=== PATIENT | female | born 1980 | race Caucasian/White ===

== ENCOUNTER 2020-12-21 10:51 | Outpatient (REF) | payer BC, SELFPAY ==
--- NOTE | ~2020-12-21 | XR_ITS ---
EXAMINATION: XR BILATERAL KNEE CLINICAL INFORMATION: Pain in bilateral knee. COMPARISON: None. TECHNIQUE: 4 views each knee. FINDINGS: Left Knee: There is mild loss of medial and patellofemoral compartment joint space with mild spurring along the medial and moderate spurring along the anterior superior patella. No abnormal joint effusion or loose bodies seen. No visible acute fracture. Left Knee: There is no visible acute fracture or dislocation. There is mild loss of medial and patellofemoral compartment joint space with moderate superior patellar spurring. No abnormal joint effusion seen. There are no loose bodies. XR/XR knee RT 4V IMPRESSION: Degenerative arthritic changes medial and patello- femoral compartments both knees with periarticular spurring. No loose body seen. No abnormal joint effusion seen.
--- NOTE | ~2020-12-21 | XR_ITS ---
EXAMINATION: XR BILATERAL KNEE CLINICAL INFORMATION: Pain in bilateral knee. COMPARISON: None. TECHNIQUE: 4 views each knee. FINDINGS: Left Knee: There is mild loss of medial and patellofemoral compartment joint space with mild spurring along the medial and moderate spurring along the anterior superior patella. No abnormal joint effusion or loose bodies seen. No visible acute fracture. Left Knee: There is no visible acute fracture or dislocation. There is mild loss of medial and patellofemoral compartment joint space with moderate superior patellar spurring. No abnormal joint effusion seen. There are no loose bodies. XR/XR knee LT 4V IMPRESSION: Degenerative arthritic changes medial and patello- femoral compartments both knees with periarticular spurring. No loose body seen. No abnormal joint effusion seen.
[2020-12-21 12:52] LABS: MANUAL DIFF FLAG NO
[2020-12-21 12:58] LABS: Basophils Percent Auto 0.4 % (0-2); Eosinophils Absolute Auto 0.2 X10*3/uL (0.0-0.4); Hematocrit 38.1 % (37-47); Hemoglobin 12.8 g/dl (12.0-16.0); Imm Gran Abs Auto 0.02 X10*3/uL (0.00-0.03); Imm Gran Pct Auto 0.2 % (0.0-0.4); Lymphocytes Absolute Auto 2.2 X10*3/uL (1.2-4.9); Lymphocytes Percent Auto 25.7 % (20-40); Mean Corpuscular HGB Conc 33.6 g/dl (31.0-35.0); Mean Corpuscular Volume 86.4 fL (80-98); Mean Platelet Volume 10.1 fL (9.4-12.3); Monocytes Absolute Auto 0.5 X10*3/uL (0.1-1.2); Monocytes Percent Auto 5.3 % (2-11); Neutrophils Absolute Auto 5.7 X10*3/uL (2.0-8.3); Neutrophils Percent Auto 66.4 % (45-73); Platelet Count 381 X10*3/uL (160-400); Red Blood Count 4.41 X10*6/uL (4.20-5.50); Red Cell Distribution Width 12.4 % (11.0-16.0); White Blood Count 8.6 X10*3/uL (4.8-10.8)
[2020-12-21 13:26] LABS: Alanine Aminotransferase 18 U/L (0-31); Albumin Level 4.3 g/dL (3.5-5.0); Alkaline Phosphatase 58 U/L (39-117); Anion Gap 15 (12-20); Aspartate Amino Transferase 14 U/L (5-31); Bilirubin Total 0.9 mg/dL (0.0-1.0); Blood Urea Nitrogen 13 mg/dL (9-16); C Reactive Protein 1.23 mg/dL (< or = 0.50); Calcium 9.5 mg/dL (8.4-10.2); Carbon Dioxide 24 mmol/L (22-29); Chloride 104 mmol/L (96-108); Estimated Glomerular Filt Rate > 60; Glucose Random 89 mg/dL (60-115); Potassium 3.8 mmol/L (3.3-5.1); Rheumatoid Factor < 15.0 IU/mL (<15.0); Sodium 139 mmol/L (135-145); Total Protein 7.2 g/dL (6.5-8.0)
[2020-12-21 14:04] LABS: Erythrocyte Sedimentation Rate 14 MM/HR (0-20)
[2020-12-22 14:42] LABS: Anti-Centromere B Antibodies <1.0 NEG AI (<1.0 NEG); Antibody to SS-A Antigen <1.0 NEG AI (<1.0 NEG); Antibody to SS-B Antigen <1.0 NEG AI (<1.0 NEG)
[2020-12-24 13:12] LABS: PTT (LAC) Screen 30 sec (< OR = 40)
[2020-12-24 14:51] LABS: Anti Nuclear Antibody Screen NEGATIVE (NEGATIVE)
[2020-12-26 13:51] LABS: Beta-2 Microglobulin, Serum 2.36 mg/L (< OR = 2.51)
[2020-12-26 14:11] LABS: Cyclic Citrullinated Peptide <16 UNITS
== END 2020-12-21 10:52 | disposition home or self-care (01) ==
LOC: HO.LAB 10:51
PROVIDERS: PCP Nurse Practitioner Family; Visit Provider Student in an Organized Health Care Education/Training Program
DX: M25.561 Pain in right knee (principal); M25.562 Pain in left knee; G89.29 Other chronic pain; M79.641 Pain in right hand; M79.642 Pain in left hand; B37.0 Candidal stomatitis; Z90.49 Acquired absence of other specified parts of digestive tract; Z98.51 Tubal ligation status; Z79.899 Other long term (current) drug therapy
CPT/HCPCS: 36415; 73564; 80053; 82232; 85025; 85597; 85613; 85652; 85730; 86038; 86039; 86140; 86200; 86235; 86431

== ENCOUNTER → 2021-01-04 15:36 | Outpatient (BNVA) | payer BC, SELFPAY | PROVIDERS: PCP Nurse Practitioner Family; Visit Provider Student in an Organized Health Care Education/Training Program ==

== ENCOUNTER 2023-08-12 12:49 | Outpatient (REF) | payer BC, SELFPAY ==
--- NOTE | ~2023-08-12 | IR_ITS ---
VenaSeal ablation left greater saphenous vein (GSV.) Ultrasound-guided foam sclerotherapy left lower extremity varicose veins HISTORY: Varicose veins bilaterally lower extremities INDICATION: Symptomatic varicose veins left lower extremity. Symptoms include pain, swelling, itching and burning ANESTHESIA: Local sedation with 1% lidocaine only PROCEDURE: Informed consent was obtained following a discussion of the risks and benefits of the procedure with the patient. The patient was placed supine on the procedure table. A preliminary ultrasound was performed which demonstrated dilated greater saphenous vein (GSV) as well as numerous branch varicosities in the calf. A site was marked on the left medial leg below the knee. The left leg was sterily prepped and draped. 1% lidocaine was administered for local anesthesia. A puncture was made into the GSV below the knee with a 21 gauge micropuncture needle under continuous ultrasound guidance with permanent recordings and direct visualization of the needle entry into the vein lumen. The needle was exchanged for a coaxial dilator over a 0.018 guidewire. The inner dilator and 0.018 guidewire were removed and a 0.035 guidewire was advanced to the saphenofemoral junction (SFJ). The outer dilator was then exchanged for the 4 Fr VenaSeal catheter which was positioned approximately 12 cm from the SFJ. At this point the glue was delivered along the length of the GSV in aliquots while retracting the catheter/delivery device and applying forward compression. Total delivery length was 50 cm. The catheter/delivery device was removed and hemostasis was achieved with manual compression. A sterile dressing was applied. Then Foam was prepared by the brake press operator using the Tessari method utilizing 1% sodium tetradecyl and room air in a 1:4 ratio. The varicose veins in the left leg were treated using the foam mixture and delivered via a 23 gauge needle under direct ultrasound guidance with permanent recordings. A total of 8 cc of foam was delivered via a single access. The treated veins included tributary varicose veins which communicate to the GSV. Post treatment ultrasound demonstrates successful occlusion of the treated veins. A gauze compression wrap was applied to the treated area. COMPLICATIONS: None immediately EBL: Minimal IR/IR venaseal vein closure IMPRESSION: Successful VenaSeal endovenous ablation of the left GSV and ultrasound-guided foam sclerotherapy of left lower extremity varicose veins PLAN: Follow-up at [facility]
== END 2023-08-12 12:50 | disposition home or self-care (01) ==
LOC: HO.RADIR 12:49
PROVIDERS: Visit Provider Student in an Organized Health Care Education/Training Program
DX: I83.893 Varicose veins of bilateral lower extremities with other complications (principal); I87.2 Venous insufficiency (chronic) (peripheral)
CPT/HCPCS: 36482; C1888

== ENCOUNTER → 2023-08-12 12:55 | Outpatient (BNV) | payer BC, SELFPAY | PROVIDERS: Visit Provider Student in an Organized Health Care Education/Training Program | DX: I83.12 Varicose veins of left lower extremity with inflammation (principal) | CPT/HCPCS: 36482 ==